=== PATIENT | male | born 1985 ===

== ENCOUNTER 2019-09-02 10:35 | Emergency (ER) | payer SELFPAY ==
[~2019-09-02] VITALS: Ht 182.9 cm; Wt 112.5 kg
[2019-09-02 10:51] VITALS: BP 123/86; Ht 182.9 cm; Wt 112.5 kg
== END 2019-09-02 12:44 | disposition home or self-care (01) ==
LOC: ED 10:35
DX: B07.9 Viral wart, unspecified (principal)
CPT/HCPCS: 90715